=== PATIENT | female | born 1950 | race African-American/Black ===

== ENCOUNTER → 2018-09-04 | Outpatient (CLI) | payer MEDICARE, OTHER ==
[~2018-09-04] MED LIST: ADVAIR 100-501 EACH IH; AMILORIDE HCL-1 EACH PO; ASPIRIN81 MG PO; CALCIUM PO; CANASA1000 MG PO; CENTRUM SILVER1 EAC3 PO; DEXILANT60 MG PO; ESTROVEN PO; FOLIC ACID1 MG PO; HYDROXYCHLOROQUINE; HYDROXYZINE HCL25 MG PO; IRON PO; LORAZEPAM0.5 MG PO; MECLIZINE HCL12.5 MG PO; METHYLPREDNISONE PO; MONTELUKAST SOD10 MG PO; MORPHINE S10 MG/5 ML; NASONEX17 GM; NITROSTAT0.4 MG SL; NORCO 10-325 T1 EACH PO; ONDANSETRON HCL8 MG PO; PANTOPRAZOLE SO40 MG PO; PENNSAID; POLYETHYLENE GL17 GM PO; SIMVASTATIN20 MG PO; STOOL SOFTENER50 MG PO; SUCRALFATE1 GM PO; ULTRAM 50MG50 MG PO; VITAMIN C500 M2 PO; ZINC SULFATE220 M1 PO; [UNRECOGNIZED DRUG - OTHER]; [UNRECOGNIZED DRUG - OTHER]
--- OUTSIDE RECORDS SUMMARY | 2018-09-04 06:07 | XMS REPORT | Continuity of Care Document ---
Author Author [employer] Address Unknown Phone Unavailable Care Team Providers Care Metrology Specialist Name Role Phone [employer] Unavailable Unavailable Problems Problem Status Onset Date Classification Date Reported Comments Source Hypertensive heart disease without heart failure Active Diagnosis 08/27/2018 Omid Hayden MD, PA Mixed hyperlipidemia Active Problem 08/27/2018 Omid Hayden MD, PA Angina pectoris, unspecified Active Problem 08/27/2018 Omid Hayden MD, PA Bruit Active Diagnosis 08/02/2018 Omid Hayden MD, [place] Family history of ischemic heart disease and other diseases of the circulatory system Active Diagnosis 08/27/2018 Omid Hayden MD, PA Benign hypertensive heart disease without heart failure Active Problem 08/27/2018 Omid Hayden MD, PA Abnormal nuclear stress test Active Diagnosis 08/27/2018 Omid Hayden MD, [place] Medications Medication Details Route Status Patient Instructions Ordering Provider Order Date Source Nitrostat 1 tablet Sublingual Active 0.4 MG Sublingual as needed (prn) Erika Hayden MD, PA Amiloride-Hydrochlorothiazide 1 tablet Orally Active 5-50 MG Orally Once a day Erika Hayden MD, PA Lorazepam 1 tablet Orally Active 0.5 MG Orally Once a day Erika Hayden MD, PA Aspirin 1 tablet Orally Active 81 MG Orally Once a day Erika Hayden MD, PA Hydroxychloroquine Sulfate 1 tablet Orally Active 200 MG Orally twice a day (bid) Erika Hayden MD, PA Clonazepam 1 tablet Orally Active 0.5 MG Orally as needed (prn) Erika Hayden MD, PA Simvastatin 1 tablet in the evening Orally Active 20 MG Orally Once a day Erika Hayden MD, PA Clonazepam 1 tablet Orally Active 0.5 MG Orally as needed (prn) Erika Hayden MD, PA Gabapentin 1 capsule Orally Active 100 MG Orally Three times a day Erika Hayden MD, PA Pennsaid 2 pumps to affected area Transdermal Active 2 % Transdermal Twice a day Erika Hayden MD, PA Allergies, Adverse Reactions, Alerts Substance Category Reaction Severity Reaction type Status Date Reported Comments Source Iodine Adverse Reaction Info Not Available Adverse Reaction Active 08/12/2018 Omid Hayden MD, PA Immunizations No Data Provided for This Section Results No Data Provided for This Section Pathology Reports No Data Provided for This Section Diagnostic Reports No Data Provided for This Section Consultation Notes No Data Provided for This Section Discharge Summaries No Data Provided for This Section History and Physicals No Data Provided for This Section Vital Signs Vital Sign Value Date Comments Source Weight 237 08/12/2018 Omid Hayden MD, [place] Heart Rate 83 08/12/2018 Omid Hayden MD, [place] Diastolic (mm Hg) 70 08/12/2018 Omid Hayden MD, [place] Systolic (mm Hg) 129 08/12/2018 Omid Hayden MD, [place] Weight 240 06/14/2018 Omid Hayden MD, PA Heart Rate 92 06/14/2018 Omid Hayden MD, PA Diastolic (mm Hg) 76 06/14/2018 Omid Hayden MD, PA Systolic (mm Hg) 130 06/14/2018 Omid Hayden MD, [place] Weight 237 01/24/2017 Omid Hayden MD, [place] Heart Rate 84 01/24/2017 Omid Hayden MD, PA Diastolic (mm Hg) 70 01/24/2017 Omid Hayden MD, PA Systolic (mm Hg) 110 01/24/2017 Omid Hayden MD, PA Encounters No Data Provided for This Section Procedures No Data Provided for This Section Assessment and Plan No Data Provided for This Section Plan of Care No Data Provided for This Section Social History No Data Provided for This Section Family History No Data Provided for This Section Advance Directives No Data Provided for This Section Functional Status No Data Provided for This Section
--- OUTSIDE RECORDS SUMMARY | 2018-09-04 06:08 | XMS REPORT ---
Author Author Td James Organization [employer] Address Unknown Phone Unavailable Care Team Providers Care Unix Consultant Name Role Phone Td James CP Unavailable Allergies, Adverse Reactions, Alerts Substance Reaction Event Type Iodine Info Not Available Drug Allergy Problems Problem Type Condition Code Onset Dates Condition Status Assessment Family history of ischemic heart disease and other diseases of the circulatory system Z82.49 Active Assessment Hypertensive heart disease without heart failure I11.9 Active Problem Hypertensive heart disease without heart failure I11.9 Active Problem Mixed hyperlipidemia 272.2 Active Problem Angina pectoris, unspecified I20.9 Active Assessment Angina pectoris, unspecified I20.9 Active Assessment Bruit R09.89 Active Problem Benign hypertensive heart disease without heart failure 402.10 Active Medications Medication Code System Code Instructions Start Date End Date Status Dosage Lorazepam [facility] 85681410504 0.5 MG Orally Once a day Active 1 tablet Nitrostat ND 05911006243 0.4 MG Sublingual as needed (prn) Active 1 tablet Hydroxychloroquine Sulfate ND 53016043974 200 MG Orally twice a day (bid) Active 1 tablet Aspirin ND 64303413598 81 MG Orally Once a day Active 1 tablet Clonazepam [facility] 56197028002 0.5 MG Orally as needed (prn) Active 1 tablet Simvastatin ND 06673217429 20 MG Orally Once a day Active 1 tablet in the evening Amiloride-Hydrochlorothiazide ND 57342190788 5-50 MG Orally Once a day Active 1 tablet Vital Signs Date/Time: June 14, 2018 BMI 36.49 Index Weight 240 lbs Height 5 ft 8 in in Cardiac Monitoring Heart Rate 92 /min Blood Pressure Diastolic 76 mm Hg Blood Pressure Systolic 130 mm Hg Results No Known Results Summary Purpose [employer] Submission
--- OUTSIDE RECORDS SUMMARY | 2018-09-04 06:08 | XMS REPORT ---
Author Author Td James Organization [employer] Address Unknown Phone Unavailable Care Team Providers Care Marketing Executive Name Role Phone Td James CP Unavailable Allergies, Adverse Reactions, Alerts Substance Reaction Event Type Iodine Info Not Available Drug Allergy Problems Problem Type Condition Code Onset Dates Condition Status Assessment Hypertensive heart disease without heart failure I11.9 Active Problem Hypertensive heart disease without heart failure I11.9 Active Problem Mixed hyperlipidemia 272.2 Active Problem Angina pectoris, unspecified I20.9 Active Assessment Bruit R09.89 Active Assessment Family history of ischemic heart disease and other diseases of the circulatory system Z82.49 Active Problem Benign hypertensive heart disease without heart failure 402.10 Active Assessment Angina pectoris, unspecified I20.9 Active Medications Medication Code System Code Instructions Start Date End Date Status Dosage Nitrostat [facility] 49617537007 0.4 MG Sublingual as needed (prn) Active 1 tablet Amiloride-Hydrochlorothiazide [facility] 76639559393 5-50 MG Orally Once a day Active 1 tablet Lorazepam [facility] 28696680271 0.5 MG Orally Once a day Active 1 tablet Aspirin [facility] 53258876812 81 MG Orally Once a day Active 1 tablet Hydroxychloroquine Sulfate [facility] 79545675952 200 MG Orally twice a day (bid) Active 1 tablet Clonazepam [facility] [address]-16 0.5 MG Orally as needed (prn) Active 1 tablet Simvastatin [facility] 69212808857 20 MG Orally Once a day Active 1 tablet in the evening Vital Signs Date/Time: Jan 24, 2017 BMI 36.03 Index Weight 237 lbs Height 5 ft 8 in in Cardiac Monitoring Heart Rate 84 /min Blood Pressure Diastolic 70 mm Hg Blood Pressure Systolic 110 mm Hg Results No Known Results Summary Purpose [employer] Submission
--- OUTSIDE RECORDS SUMMARY | 2018-09-04 06:08 | XMS REPORT | Summary of Care ---
Author Author DAGMAR Dasilva, ANNEMARIE Organization Unknown Address Unknown Phone Unavailable Care Team Providers Care Forestry Aid Name Role Phone DAGMAR Dasilva, ANNEMARIE Unavailable Unavailable RAMILA COPELAND M.D. Unavailable Unavailable YEE MANCERA, HECTOR Carmen Unavailable Unavailable Unavailable Unavailable Functional Status Name Dates Details Functional status health issues are not documented Status: Name Dates Details Cognitive status health issues are not documented Status: Problems Name Dates Details Murmur (785.2, R01.1) Status: Active Essential (primary) hypertension (401.9, I10) Status: Active Tricuspid regurgitation (397.0, I07.1) Status: Active Hyperlipidemia (272.4, E78.5) Status: Active Carotid bruit (785.9, R09.89) Status: Active Left knee pain (719.46, M25.562) Status: Active Osteoarthritis of right knee (715.96, M17.11) Status: Active Medications Name Dates Details AMILoride-HydroCHLOROthiazide 5-50 MG Oral Tablet TAKE 1 TABLET ONCE DAILY. Active Potassium Chloride Kitty ER 10 MEQ Oral Tablet Extended Release TAKE 1 TABLET DAILY. * Refills: 0 Active Pantoprazole Sodium 40 MG Oral Tablet Delayed Release TAKE 1 TABLET DAILY. * Refills: 0 Active Simvastatin 20 MG Oral Tablet TAKE 1 TABLET DAILY AT BEDTIME. * Refills: 0 Active HydrOXYzine HCl - 25 MG Oral Tablet TAKE 1 TABLET DAILY * Refills: 0 Active Hydrocodone-Acetaminophen 5-500 MG TABS USE DIRECTED * Refills: 0 Active Hydrocortisone TABS USE DIRECTED. * Refills: 0 Active Aspirin 81 MG TABS TAKE 1 TABLET DAILY. * Refills: 0 Active Nitrostat 0.4 MG Sublingual Tablet Sublingual PLACE 1 TABLET UNDER THE TONGUE EVERY 5 MINUTES UP TO 3 DOSES NEEDED FOR CHES T PAIN. * Quantity: 25 Refills: 1 RAMILA COPELAND M.D. * Start : 24-Dec-2012 Active Hydroxychloroquine Sulfate 200 MG Oral Tablet TAKE 1 TABLET TWICE DAILY WITH FOOD. * Refills: 0 Active Centrum Silver TABS * Refills: 0 Active Folic Acid TABS * Refills: 0 Active Zinc CAPS * Refills: 0 Active Vitamin C TABS * Refills: 0 Active Allergies and Adverse Reactions Name Dates Details Iodinated Contrast Media (Allergy) Status: Active Past Medical History Name Dates Details History of Cervical Cancer (V10.41) Status: Resolved History of essential hypertension (V12.59, Z86.79) Status: Resolved History of hyperlipidemia (V12.29, Z86.39) Status: Resolved History of thrombotic thrombocytopenic purpura (V12.3, Z86.2) Status: Resolved History of transient cerebral ischemia (V12.54, Z86.73) Status: Resolved History of Tuberculosis (V12.01) Status: Resolved History of ulcerative colitis (V12.79, Z87.19) Status: Resolved Personal history of asthma (V12.69, Z87.09) Status: Resolved Procedures Procedure Dates Details History of Tonsillectomy Completed History of Hysterectomy Completed History of Knee Surgery Left Completed Immunization Name Dates Details Immunizations not documented Family History Name Dates Details Family history of Cancer Comments: Family History Status: Active Family history of Hypertension (V17.49) Comments: Family History Status: Active Name Dates Details Family history of Acute Myocardial Infarction (V17.3) Status: Active Name Dates Details Family history of Heart Disease (V17.49) Status: Active Name Dates Details Family history of Stroke Syndrome (V17.1) Status: Active Social History Name Dates Details - Status: Name Dates Details Former smoker Vital Signs Date Test Result Details No Known Vitals to report Results Date Description Value Details Results not documented Plan of Care Name Dates Details Planned Observations Planned Goals not documented Interventions Provided Labs/Procedures/Imaging* [U] XRAY KNEE 4 OR MORE VWS LEFT [id number]; Done: 28 Sep 2017 Instructions Name Dates Details Instructions not documented Encounters Appointment; ANNEMARIE LEAVITT M.D. Encounter Diagnosis: Problem not documented On: 28-Sep-2017 9:30
--- OUTSIDE RECORDS SUMMARY | 2018-09-04 06:08 | XMS REPORT ---
Author Author Td James Organization [employer] Address Unknown Phone Unavailable Care Team Providers Care [employer] Worker Name Role Phone Td James CP Unavailable Allergies, Adverse Reactions, Alerts Substance Reaction Event Type Iodine Info Not Available Drug Allergy Problems Problem Type Condition Code Onset Dates Condition Status Assessment Hypertensive heart disease without heart failure I11.9 Active Assessment Abnormal nuclear stress test R93.1 Active Problem Hypertensive heart disease without heart failure I11.9 Active Problem Mixed hyperlipidemia 272.2 Active Problem Angina pectoris, unspecified I20.9 Active Assessment Angina pectoris, unspecified I20.9 Active Assessment Family history of ischemic heart disease and other diseases of the circulatory system Z82.49 Active Problem Benign hypertensive heart disease without heart failure 402.10 Active Medications Medication Code System Code Instructions Start Date End Date Status Dosage Aspirin [facility] 30215850261 81 MG Orally Once a day Active 1 tablet Gabapentin [facility] 63595110307 100 MG Orally Three times a day Active 1 capsule Pennsaid [facility] 69026150893 2 % Transdermal Twice a day Active 2 pumps to affected area Amiloride-Hydrochlorothiazide [facility] 74378039548 5-50 MG Orally Once a day Active 1 tablet Hydroxychloroquine Sulfate [facility] 55772571100 200 MG Orally twice a day (bid) Active 1 tablet Simvastatin [facility] 46445573856 20 MG Orally Once a day Active 1 tablet in the evening Clonazepam [facility] 65075139726 0.5 MG Orally as needed (prn) Active 1 tablet Lorazepam [facility] 19987245418 0.5 MG Orally Once a day Active 1 tablet Nitrostat ND 22605545667 0.4 MG Sublingual as needed (prn) Active 1 tablet Vital Signs Date/Time: August 12, 2018 BMI 36.03 Index Weight 237 lbs Height 5 ft 8 in in Cardiac Monitoring Heart Rate 83 /min Blood Pressure Diastolic 70 mm Hg Blood Pressure Systolic 129 mm Hg Results No Known Results Summary Purpose [employer] Submission
--- OUTSIDE RECORDS SUMMARY | 2018-09-04 06:08 | XMS REPORT ---
Author Author Td James Organization [employer] Address Unknown Phone Unavailable Care Team Providers Care Straightener And Aligner Name Role Phone Td James CP Unavailable Allergies No Known Allergies Problems Problem Type Condition Code Onset Dates Condition Status Problem Hypertensive heart disease without heart failure I11.9 Active Problem Mixed hyperlipidemia 272.2 Active Problem Angina pectoris, unspecified I20.9 Active Problem Benign hypertensive heart disease without heart failure 402.10 Active Medications No Known Medications Results No Known Results Summary Purpose [employer] Submission
== END | disposition home or self-care (01) ==
LOC: RAD 06:04 → OR 06:04 → EDSTATUS 07:30
PROVIDERS: ATTEND Internal Medicine Gastroenterology
DX: K51.20 Ulcerative (chronic) proctitis without complications (principal); K21.9 Gastro-esophageal reflux disease without esophagitis; K59.03 Drug induced constipation; R11.0 Nausea; E66.9 Obesity, unspecified; Z68.35 Body mass index [BMI] 35.0-35.9, adult; Z71.3 Dietary counseling and surveillance; Z53.09 Procedure and treatment not carried out because of other contraindication
CPT/HCPCS: 93005